=== PATIENT | male | born 1945 | race Caucasian/White ===

== ENCOUNTER → 2018-10-17 06:52 | Outpatient (CLI) | payer MEDICARE, OTHER, SELFPAY ==
[2018-10-17 08:00] LABS: Alanine Aminotransferase 25 IU/L (21-72); Albumin 4.4 g/dL (3.5-5.0); Albumin Globulin Ratio 1.6 (1.0-2.8); Alkaline Phosphatase 51 U/L (38-126); Aspartate Aminotransferase 22 IU/L (17-59); BUN Creatinine Ratio 32.5 (6-22); Bilirubin Total 0.4 mg/dL (0.2-1.3); Blood Urea Nitrogen 26 mg/dL (9-20); Calcium 8.6 mg/dL (8.4-10.2); Carbon Dioxide 29 mmol/L (22-32); Chloride 102 mmol/L (98-107); Cholesterol 149 mg/dL (140-199); Estimated Glomerular Filt Rate > 60.0 mL/min (>60); Globulin 2.7 g/dL (1.7-4.1); Glucose 91 mg/dL (80-110); HDL Cholesterol 36 mg/dL (40-60); HEMOLYSIS < 15 (0-50); LDL Cholesterol Calculated 99 mg/dL (<100); Potassium 4.6 mmol/L (3.4-5.1); Sodium 144 mmol/L (137-145); Total Protein 7.1 g/dL (6.3-8.2); Triglycerides 70 mg/dL (35-150)
[2018-10-17 08:05] LABS: Add Manual Diff / Slide Review NO; Basophils Percent Auto 0.6 % (0-2); Eosinophils Percent Auto 3.5 % (2-4); Hematocrit 41.9 % (41-53); Lymphocytes Percent Auto 27.3 % (25-40); Mean Corpuscular HGB Conc 33.3 % (30-36); Mean Corpuscular Hemoglobin 31.1 PG (26-34); Mean Corpuscular Volume 93.5 fL (80-100); Neutrophils Absolute Auto 4300 /uL (3000-5900); Neutrophils Percent Auto 58.6 % (50-75); Platelet Count 308 X10^3/uL (150-400); Red Blood Cell Count 4.49 X10^6/uL (4.5-5.9); Red Cell Distribution Width 13.9 % (11.6-14.8); White Blood Cell Count 7.4 X10^3/uL (4.5-11.0)
[2018-10-17 08:28] LABS: Thyroid Stimulating Hormone < 0.02 uIU/mL (0.47-4.68)
== END ==
PROVIDERS: PCP Family Medicine; Visit Provider Family Medicine
DX: C73 Malignant neoplasm of thyroid gland (principal); E03.9 Hypothyroidism, unspecified; Z12.5 Encounter for screening for malignant neoplasm of prostate; D64.9 Anemia, unspecified; I10 Essential (primary) hypertension
CPT/HCPCS: 36415; 80053; 80061; 84443; 85025; G0103

== ENCOUNTER → 2019-11-27 07:04 | Outpatient (CLI) | payer MEDICARE, OTHER, SELFPAY ==
[2019-11-27 08:52] LABS: Add Manual Diff / Slide Review NO; Basophils Absolute Auto 0 /uL (0-100); Basophils Percent Auto 0.5 % (0-2); Eosinophils Absolute Auto 200 /uL (0-450); Eosinophils Percent Auto 2.9 % (2-4); Hematocrit 40.5 % (41-53); Hemoglobin 14.1 g/dL (13.5-17.5); Lymphocytes Absolute Auto 1700 /uL (1100-4500); Lymphocytes Percent Auto 22.7 % (25-40); Mean Corpuscular HGB Conc 34.9 % (30-36); Mean Corpuscular Hemoglobin 31.2 PG (26-34); Mean Corpuscular Volume 89.4 fL (80-100); Monocytes Absolute Auto 800 /uL (0-900); Monocytes Percent Auto 10.1 % (3-14); Neutrophils Absolute Auto 4700 /uL (1500-7000); Neutrophils Percent Auto 63.8 % (50-75); Platelet Count 303 X10^3/uL (150-400); Red Blood Cell Count 4.53 X10^6/uL (4.5-5.9); Red Cell Distribution Width 13.6 % (11.6-14.8); White Blood Cell Count 7.4 X10^3/uL (4.5-11.0)
[2019-11-27 09:03] LABS: Alanine Aminotransferase 20 IU/L (<50); Albumin 4.4 g/dL (3.5-5.0); Albumin Globulin Ratio 1.6 (1.0-2.8); Alkaline Phosphatase 52 U/L (38-126); Aspartate Aminotransferase 28 IU/L (17-59); Bilirubin Total 0.4 mg/dL (0.2-1.3); Blood Urea Nitrogen 32 mg/dL (9-20); Calcium 8.9 mg/dL (8.4-10.2); Carbon Dioxide 28 mmol/L (22-32); Chloride 101 mmol/L (98-107); Cholesterol 145 mg/dL (140-199); Estimated Glomerular Filt Rate > 60.0 mL/min (>60); Globulin 2.7 g/dL (1.7-4.1); Glucose 92 mg/dL (80-110); HDL Cholesterol 26 mg/dL (40-60); HEMOLYSIS 34 (0-50); LDL Cholesterol Calculated 106 mg/dL (<100); Potassium 4.6 mmol/L (3.4-5.1); Sodium 139 mmol/L (137-145); Total Protein 7.1 g/dL (6.3-8.2); Triglycerides 64 mg/dL (35-150)
[2019-11-27 09:32] LABS: Prostate Specific Antigen Scrn 2.61 ng/mL (0.1-4.0)
[2019-11-27 10:18] LABS: Thyroid Stimulating Hormone < 0.02 uIU/mL (0.47-4.68)
== END ==
PROVIDERS: PCP Family Medicine; Visit Provider Family Medicine
DX: Z12.5 Encounter for screening for malignant neoplasm of prostate (principal); E78.5 Hyperlipidemia, unspecified; Z13.1 Encounter for screening for diabetes mellitus; Z13.220 Encounter for screening for lipoid disorders; Z13.6 Encounter for screening for cardiovascular disorders; E89.0 Postprocedural hypothyroidism
CPT/HCPCS: 36415; 80053; 80061; 84443; 85025; G0103

== ENCOUNTER → 2020-02-26 10:44 | Outpatient (CLI) | payer MEDICARE, OTHER, SELFPAY ==
[2020-02-26 13:29] LABS: Free T3, Triiodothyronine Free 3.57 pg/mL (2.77-5.27); Free T4, Direct Thyroxine 2.15 ng/dL (0.78-2.19)
[2020-02-26 13:42] LABS: Thyroid Stimulating Hormone < 0.02 uIU/mL (0.47-4.68)
[2020-02-27 09:08] LABS: PSA, Total 2.5 ng/mL (0.0-4.0)
== END ==
PROVIDERS: PCP Family Medicine; Referring Provider Family Medicine; Visit Provider Family Medicine
DX: R97.20 Elevated prostate specific antigen [PSA] (principal)
CPT/HCPCS: 36415; 84153; 84154; 84439; 84443; 84481

== ENCOUNTER → 2020-10-29 07:05 | Outpatient (CLI) | payer MEDICARE, OTHER, SELFPAY ==
[2020-10-29 09:23] LABS: Thyroid Stimulating Hormone < 0.015 uIU/mL (0.47-4.68)
== END ==
PROVIDERS: PCP Family Medicine; Referring Provider Family Medicine; Visit Provider Family Medicine
DX: E89.0 Postprocedural hypothyroidism (principal)
CPT/HCPCS: 36415; 84443

== ENCOUNTER → 2021-01-02 13:28 | Outpatient (CLI) | payer MEDICARE, OTHER, SELFPAY | PROVIDERS: PCP Student in an Organized Health Care Education/Training Program; Referring Provider Student in an Organized Health Care Education/Training Program; Visit Provider Student in an Organized Health Care Education/Training Program | DX: E89.0 Postprocedural hypothyroidism (principal); Z87.891 Personal history of nicotine dependence | CPT/HCPCS: 77080 ==

== ENCOUNTER → 2021-02-19 16:09 | Outpatient (CLI) | payer MEDICARE, OTHER, SELFPAY ==
[2021-02-19 17:38] LABS: TSH w/ Reflex to FT4 < 0.02 uIU/mL (0.47-4.68)
[2021-02-19 18:13] LABS: Free T4, Direct Thyroxine 1.78 ng/dL (0.78-2.19)
== END ==
PROVIDERS: PCP Student in an Organized Health Care Education/Training Program; Referring Provider Student in an Organized Health Care Education/Training Program; Visit Provider Student in an Organized Health Care Education/Training Program
DX: E89.0 Postprocedural hypothyroidism (principal)
CPT/HCPCS: 36415; 84439; 84443

== ENCOUNTER → 2021-03-31 09:29 | Outpatient (CLI) | payer MEDICARE, OTHER, SELFPAY ==
[2021-03-31 11:55] LABS: Free T4, Direct Thyroxine 1.45 ng/dL (0.78-2.19)
== END ==
PROVIDERS: PCP Student in an Organized Health Care Education/Training Program; Referring Provider Student in an Organized Health Care Education/Training Program; Visit Provider Student in an Organized Health Care Education/Training Program
DX: E05.80 Other thyrotoxicosis without thyrotoxic crisis or storm (principal)
CPT/HCPCS: 36415; 84439; 84443

== ENCOUNTER → 2022-01-22 06:57 | Outpatient (CLI) | payer MEDICARE, OTHER, SELFPAY ==
[2022-01-22 10:02] LABS: TSH w/ Reflex to FT4 0.86 uIU/mL (0.47-4.68)
== END ==
PROVIDERS: PCP Student in an Organized Health Care Education/Training Program; Referring Provider Student in an Organized Health Care Education/Training Program; Visit Provider Student in an Organized Health Care Education/Training Program
DX: C73 Malignant neoplasm of thyroid gland (principal); E03.9 Hypothyroidism, unspecified
CPT/HCPCS: 36415; 84443

== ENCOUNTER → 2023-01-24 16:14 | Outpatient (CLI) | payer MEDICARE, OTHER, SELFPAY ==
[2023-01-24 18:00] LABS: Hep C Virus Ab w/Reflex Quant NEGATIVE s/c (NEGATIVE)
[2023-01-24 22:12] LABS: TSH w/ Reflex to FT4 0.52 uIU/mL (0.47-4.68)
== END ==
PROVIDERS: PCP Student in an Organized Health Care Education/Training Program; Referring Provider Student in an Organized Health Care Education/Training Program; Visit Provider Student in an Organized Health Care Education/Training Program
DX: E03.9 Hypothyroidism, unspecified (principal); Z11.59 Encounter for screening for other viral diseases
CPT/HCPCS: 36415; 84443; 86803

== ENCOUNTER → 2023-01-28 07:13 | Outpatient (CLI) | payer MEDICARE, OTHER, SELFPAY ==
[2023-01-31 10:17] LABS: Fecal Immunochemical Test Negative (Negative)
== END ==
PROVIDERS: PCP Student in an Organized Health Care Education/Training Program; Referring Provider Student in an Organized Health Care Education/Training Program; Visit Provider Student in an Organized Health Care Education/Training Program
DX: Z12.11 Encounter for screening for malignant neoplasm of colon (principal)
CPT/HCPCS: 82274

== ENCOUNTER → 2023-12-22 10:10 | Outpatient (CLI) | payer MEDICARE, OTHER, SELFPAY ==
[2023-12-22 10:55] LABS: Add Manual Diff / Slide Review NO; Basophils Absolute Auto 100 /uL (0-100); Basophils Percent Auto 0.7 % (0-2); Eosinophils Absolute Auto 200 /uL (0-450); Eosinophils Percent Auto 1.9 % (2-4); Hematocrit 39.8 % (41-53); Hemoglobin 13.8 g/dL (13.5-17.5); Lymphocytes Absolute Auto 1900 /uL (1100-4500); Lymphocytes Percent Auto 22.7 % (25-40); Mean Corpuscular HGB Conc 34.7 % (30-36); Mean Corpuscular Hemoglobin 31.7 PG (26-34); Mean Corpuscular Volume 91.2 fL (80-100); Monocytes Absolute Auto 800 /uL (0-900); Monocytes Percent Auto 9.2 % (3-14); Neutrophils Absolute Auto 5600 /uL (1500-7000); Neutrophils Percent Auto 65.5 % (50-75); Platelet Count 324 X10^3/uL (150-400); Red Blood Cell Count 4.36 X10^6/uL (4.5-5.9); Red Cell Distribution Width 13.4 % (11.6-14.8); White Blood Cell Count 8.5 X10^3/uL (4.5-11.0)
[2023-12-22 11:32] LABS: Alanine Aminotransferase 17 IU/L (<50); Albumin 4.2 g/dL (3.5-5.0); Albumin Globulin Ratio 1.4 (1.0-2.8); Alkaline Phosphatase 58 U/L (38-126); Aspartate Aminotransferase 33 IU/L (17-59); BUN Creatinine Ratio 34.9 (6-22); Bilirubin Total 0.5 mg/dL (0.2-1.3); Blood Urea Nitrogen 30 mg/dL (9-20); Calcium 8.9 mg/dL (8.4-10.2); Carbon Dioxide 28 mmol/L (22-32); Chloride 102 mmol/L (98-107); Estimated Glomerular Filt Rate > 60 mL/min (>60); Glucose 92 mg/dL (80-110); HEMOLYSIS < 15 (0-50); Potassium 4.7 mmol/L (3.4-5.1); Sodium 138 mmol/L (137-145); Total Protein 7.2 g/dL (6.3-8.2)
[2023-12-22 11:46] LABS: Free T4, Direct Thyroxine 1.36 ng/dL (0.78-2.19)
[2023-12-22 11:58] LABS: Prostate Specific Antigen Scrn 3.38 ng/mL (0.1-4.0)
[2023-12-22 11:59] LABS: Thyroid Stimulating Hormone 0.936 uIU/mL (0.47-4.68)
== END ==
PROVIDERS: PCP Family Medicine; Referring Provider Family Medicine; Visit Provider Family Medicine
DX: Z12.5 Encounter for screening for malignant neoplasm of prostate (principal); E03.9 Hypothyroidism, unspecified; R97.20 Elevated prostate specific antigen [PSA]
CPT/HCPCS: 36415; 80053; 84439; 84443; 85025; G0103

== ENCOUNTER → 2024-03-26 08:10 | Outpatient (CLI) | payer MEDICARE, OTHER, SELFPAY ==
--- NOTE | 2024-03-26 08:12 | DI.RAD.S_ITS ---
PROCEDURE: XR CHEST 2V INDICATIONS: Chronic cough x 4 weeks and fevers TECHNIQUE: 2 views of the chest were acquired. COMPARISON: None. FINDINGS: Surgical changes and devices: None. Lungs and pleura: Lungs are clear. No pleural effusions or pneumothorax. Mediastinum: Mediastinal contours are normal. Heart size is normal. Bones and chest wall: No suspicious bony abnormalities. Soft tissues appear unremarkable. IMPRESSION: No acute cardiopulmonary abnormality is seen. Dictated by: Carlos Choe M.D. on 03/26/2024 at 11:51 Approved by: Carlos Choe M.D. on 03/26/2024 at 11:51
== END ==
LOC: RAD 08:12
PROVIDERS: PCP Family Medicine; Referring Provider Physician Assistant; Visit Provider Physician Assistant
DX: R05.3 Chronic cough (principal)
CPT/HCPCS: 71046

== ENCOUNTER 2024-05-08 07:48 | Day surgery (SDC) | payer MEDICARE, OTHER, SELFPAY ==
[2024-05-08 08:20] VITALS: BP 146/72; PULSE 63; RESP 17; TEMP 36.3; O2SAT 95
--- NOTE | 2024-05-08 08:34 | PM.HP.1 ---
History of Present Illness History of Present Illness Date Patient Seen: 05/08/24 Time Patient Seen: 08:35 Chief complaint: [facility] [place] Narrative: 78-year-old man here for screening colonoscopy. Last colonoscopy 5 years ago. History of colonic polyps. No family history of colon cancer. No abdominal concerns today. 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) Dental abscess Surgical History Anesthesia Inguinal hernia (~2012) History of thyroidectomy (~1973) Family History Father Stroke Social History Smoking Status: Former smoker Meds Home Medications and Allergies Home Medications Medication Instructions Recorded Confirmed Type ASPIRIN (#ASPIRIN) 81 mg PO QDAY ##0 10/19/11 03/26/24 History MULTIVITAMIN (#MULTIPLE VITAMINS) 1 cap PO Q DAY ##0 10/20/11 05/08/24 History Vitamin C 1,000 mg PO DAILY 11/05/20 05/08/24 History omega 8-riy-rjw-fish oil 1,000 mg 2 cap PO QDAY #0 caps 11/05/20 05/08/24 History (120 mg-180 mg) capsule (Fish Oil) ibuprofen 600 mg tablet 600 mg PO Q8H PRN pain #60 tabs 09/01/23 03/26/24 Rx peg 3350-sod sulf,vtdin-bxo-zrx 1,000 ml PO DIRECTED #2,000 mL 04/09/24 Rx 178.7-7.3-0.5-1.12-0.9 gram oral soln (Suflave) levothyroxine 125 mcg tablet 125 mcg PO DAILY #90 tabs 04/23/24 05/08/24 Rx Allergies Allergy/AdvReac Type Severity Reaction Status Date / Time No Known Drug Allergies Allergy Verified 05/08/24 08:14 Exam Vital Signs (past 8 hours): - 05/08/24 08:20 Temperature 97.3 F L Pulse Rate 63 Respiratory Rate 17 Blood Pressure 146/72 H Pulse Oximetry 95 Oxygen Delivery Method Room Air Oxygen Delivery Method Room Air Narrative Exam Narrative: General adult man alert oriented no acute distress Chest nonlabored respiration Extremities warm well perfused Assessment & Plan Assessment & Plan narrative: The patient requires colorectal screening and colonoscopy is recommended. Technical details were discussed. Risks, benefits, alternatives explained. Risks including but not limited to myocardial infarction, aspiration, bleeding, pain, missed lesion, incomplete examination, need for further radiographic studies, intestinal injury, and need for major abdominal surgery were discussed. All questions were answered to their satisfaction, and they are in agreement with this plan.
[2024-05-08] MEDS: LACTATED RINGERS 1,000 ML 100 ML IV (08:36)
[2024-05-08 09:05] VITALS: BP 123/81; PULSE 75; RESP 14; TEMP 36.7; O2SAT 95
[2024-05-08 09:12] VITALS: BP 120/71; PULSE 79; RESP 14; TEMP 36.7; O2SAT 92
--- NOTE | 2024-05-08 09:13 | P.OP.COLON_ITS ---
Operative Date/Time/Diagnoses Date of procedure: 05/08/24 Time of procedure: 09:14 Pre-op diagnosis: Colorectal screening Procedure & Clinicians Study performed: Screening colonoscopy Same procedure as scheduled: Yes Indications: Colorectal screening Surgeon: Ric Blanc Procedure Notes Procedure in detail: The history and physical was performed/updated and the patient is ASA class is 2. The procedure was discussed in detail with the patient. Potential risks co mplications including infection, bleeding, missed diagnosis, perforation, need for surgery, and were explained. Their questions were answered and informed consent was obtained. Patient was brought to the procedure room and placed standard monitoring equipment. The patient's vital signs were monitored continuously throughout the entire procedure. Prior to starting time-out was performed. The patient was placed in the left lateral recumbent position. Procedural sedation was administered by anesthesia. Examination began with a thorough inspection of the perianal area there was no evidence of fissures, fistulae, external hemorrhoids or cutaneous malignancy. The colonoscopy scope was then placed into the anal canal and was advanced to the cecum, which was identified by the ileocecal valve, the appendiceal orifice and the confluence of the taenia. The scope was then slowly withdrawn examining colon thoroughly in all directions, irrigating it of any residual stool. The scope was retroflexed within the rectum The patient tolerated the procedure well. They will be discharged once criteria are met. The prep was of good/excellent quality. The withdrawl time was 6 minutes. FINDINGS * Sigmoid diverticulosis * Internal hemorrhoids * No polyps Specimen(s): none sent Impression: Diverticulosis Post-procedure Recommendations: High fiber diet Plan for aftercare: No further colonoscopy necessary unless symptomatic Disposition: same day surgery
[2024-05-08 09:17] VITALS: BP 141/67; PULSE 71; RESP 15; TEMP 36.6; O2SAT 96
[2024-05-08 09:22] VITALS: BP 125/75; PULSE 70; RESP 18; TEMP 36.6; O2SAT 97
== END 2024-05-08 09:36 | disposition home or self-care (01) ==
PROVIDERS: PCP Family Medicine; Referring Provider Surgery; Visit Provider Surgery
PROC: 0DJD8ZZ Inspection of Lower Intestinal Tract, Via Natural or Artificial Opening Endoscopic (ICD-10-PCS; CPT 45378; principal; 2024-05-08 08:45)
DX: Z12.11 Encounter for screening for malignant neoplasm of colon (principal); K64.8 Other hemorrhoids; K57.30 Diverticulosis of large intestine without perforation or abscess without bleeding
CPT/HCPCS: G0121; J2704

== ENCOUNTER → 2024-06-28 06:35 | Outpatient (CLI) | payer MEDICARE, OTHER, SELFPAY ==
[2024-06-28 08:13] LABS: Add Manual Diff / Slide Review NO; Basophils Absolute Auto 0 /uL (0-100); Basophils Percent Auto 0.5 % (0-2); Eosinophils Absolute Auto 200 /uL (0-450); Eosinophils Percent Auto 2.7 % (2-4); Hemoglobin 13.1 g/dL (13.5-17.5); Lymphocytes Absolute Auto 1500 /uL (1100-4500); Lymphocytes Percent Auto 22.1 % (25-40); Mean Corpuscular HGB Conc 34.4 % (30-36); Mean Corpuscular Hemoglobin 32.1 PG (26-34); Mean Corpuscular Volume 93.5 fL (80-100); Monocytes Absolute Auto 700 /uL (0-900); Monocytes Percent Auto 10.2 % (3-14); Neutrophils Absolute Auto 4400 /uL (1500-7000); Neutrophils Percent Auto 64.5 % (50-75); Platelet Count 268 X10^3/uL (150-400); Red Blood Cell Count 4.06 X10^6/uL (4.5-5.9); Red Cell Distribution Width 13.8 % (11.6-14.8); White Blood Cell Count 6.9 X10^3/uL (4.5-11.0)
[2024-06-28 08:39] LABS: Reticulocyte Count, Percent 0.8 % (0.9-2.6)
[2024-06-28 08:54] LABS: Cholesterol 148 mg/dL (140-199); HDL Cholesterol 40 mg/dL (40-60); LDL Cholesterol Calculated 98 mg/dL (<100); Triglycerides 48 mg/dL (35-150)
[2024-06-28 09:21] LABS: Prostate Specific Antigen Scrn 3.22 ng/mL (0.1-4.0)
== END ==
PROVIDERS: PCP Family Medicine; Referring Provider Family Medicine; Visit Provider Family Medicine
DX: D64.9 Anemia, unspecified (principal); E89.0 Postprocedural hypothyroidism; Z12.5 Encounter for screening for malignant neoplasm of prostate; R97.20 Elevated prostate specific antigen [PSA]; Z13.6 Encounter for screening for cardiovascular disorders; Z79.899 Other long term (current) drug therapy
CPT/HCPCS: 36415; 80061; 85025; 85045; G0103

== ENCOUNTER → 2024-07-06 08:50 | Outpatient (CLI) | payer MEDICARE, OTHER, SELFPAY ==
--- NOTE | 2024-07-06 08:51 | DI.RAD.S_ITS ---
PROCEDURE: XR LUMBAR SPINE 2-3V INDICATIONS: Progressive lower back pain with left-sided radiculopathy TECHNIQUE: 3 views of the lumbar spine were acquired. COMPARISON: None. FINDINGS: Bones: 5 osf-nbf-lssygvk vertebrae are present. Mild dextrocurvature. Mild retrolisthesis of L2 on L3 and L3 on L4. There is multilevel facet arthropathy, worse at L4-5 and L5-S1. Multilevel disc height loss with degenerative endplate changes and spurring is present. No vertebral body compression fractures. No suspicious bony lesions. Soft tissues: Overlying bowel gas pattern is normal. No suspicious soft tissue calcifications. Atherosclerotic vascular calcifications. IMPRESSION: Severe multilevel degenerative changes of the lumbar spine. Consider MRI for further evaluation. Dictated by: Rodolfo Holt M.D. on 07/06/2024 at 16:55 Approved by: Rodolfo Holt M.D. on 07/06/2024 at 16:55
== END ==
PROVIDERS: PCP Family Medicine; Referring Provider Family Medicine; Visit Provider Family Medicine
DX: M47.26 Other spondylosis with radiculopathy, lumbar region (principal); M47.27 Other spondylosis with radiculopathy, lumbosacral region
CPT/HCPCS: 72100

== ENCOUNTER → 2024-08-01 07:06 | Outpatient (CLI) | payer MEDICARE, OTHER, SELFPAY ==
--- NOTE | 2024-08-01 07:07 | DI.MRI.S_ITS ---
PROCEDURE: MR LUMBAR SPINE WO CON INDICATIONS: eval chronic back pain TECHNIQUE: Noncontrast sagittal T1 spin echo and T2 fast echo, sagittal STIR, and T2 fast spin echo through the lumbar spine. In cases with scoliosis, additional coronal T2 fast spin echo may be performed. COMPARISON: None. FINDINGS: Image quality: Motion is present multiple levels, limiting areas of fine detail evaluation. Alignment and Curvature: There is minimal rightward curvature. There is trace retrolisthesis of L1 on L2, L2 on L3, L4 on L5. Bone Marrow: Marrow is of normal overall signal. Moderate reactive endplate changes are present at L1-2, L2-3. Multilevel Schmorl's nodes are present predominantly along the superior endplates L1, L2 and L3. No acute vertebral body compression fractures. Spinal Cord: Conus medullaris terminates at the L1 level. Visualized cord demonstrates normal signal and size. Paraspinous Soft Tissues: No paravertebral masses. Discs: Multilevel moderate to severe disc desiccation. T12-L1: Minimal disc bulge without spinal stenosis or foraminal narrowing. L1-L2: Mild disc bulge with mild spinal stenosis. Prominent motion is present at this level. There is rqva-ql-blguplgy left foraminal narrowing with facet and ligamentum flavum hypertrophy L2-L3: Mild disc bulge with mild spinal stenosis. Eiyi-sz-judfmbkd bilateral foraminal narrowing with facet and ligamentum flavum hypertrophy. L3-L4: Mild disc bulge with mild spinal stenosis. Moderate bilateral foraminal narrowing, left greater than right with facet and ligamentum flavum hypertrophy. L4-L5: Mild disc bulge with severe spinal stenosis and canal compression. Moderate to severe left and severe right foraminal narrowing, with mild compression of the exiting right L4 nerve root. Facet and ligamentum flavum hypertrophy are present., L5-S1: Mild disc bulge without spinal stenosis. Severe bilateral foraminal narrowing, right greater than left with mild compression of the exiting L5 nerve roots bilaterally, right greater than left. Facet and ligamentum flavum hypertrophy are present. IMPRESSION: Multilevel spinal stenosis severe at L4-5 with canal compression secondary to disc bulge as well as facet/ligamentum flavum hypertrophy. Multilevel foraminal narrowing most severe at L5-S1 secondary to facet/ligamentum flavum arthropathy. Dictated by: Stacie Farley M.D. on 08/01/2024 at 10:25 Approved by: Stacie Farley M.D. on 08/01/2024 at 10:50
== END ==
LOC: MRI 07:06
PROVIDERS: PCP Family Medicine; Referring Provider Family Medicine; Visit Provider Family Medicine
DX: M48.061 Spinal stenosis, lumbar region without neurogenic claudication (principal); M48.07 Spinal stenosis, lumbosacral region; M51.16 Intervertebral disc disorders with radiculopathy, lumbar region; M51.17 Intervertebral disc disorders with radiculopathy, lumbosacral region; M47.26 Other spondylosis with radiculopathy, lumbar region; M47.27 Other spondylosis with radiculopathy, lumbosacral region; M54.50 Low back pain, unspecified
CPT/HCPCS: 72148

== ENCOUNTER → 2024-09-26 08:48 | Outpatient (CLI) | payer MEDICARE, OTHER, SELFPAY ==
--- NOTE | 2024-09-26 09:25 | EKG_ITS ---
[address] [address] Test Date: 2024-09-26 Pat Name: Francisco Santana Department: [facility] Room: Gender: Male Banana Expert: BRYNN : 1945 Requested By: Order Number: [id number] Reading MD: Chance Downs MD Measurements Intervals Irwin Rate: 61 P: 10 MD: 202 QRS: 68 QRSD: 110 T: 50 QT: 410 QTc: 412 Interpretive Statements Normal sinus rhythm Electronically Signed On 09-27-2024 8:05:27 PST by Chance Downs MD
[2024-09-26 10:19] LABS: Add Manual Diff / Slide Review NO; Basophils Absolute Auto 0 /uL (0-100); Basophils Percent Auto 0.5 % (0-2); Eosinophils Absolute Auto 100 /uL (0-450); Hematocrit 39.7 % (41-53); Hemoglobin 13.4 g/dL (13.5-17.5); Lymphocytes Absolute Auto 1800 /uL (1100-4500); Lymphocytes Percent Auto 26.3 % (25-40); Mean Corpuscular HGB Conc 33.7 % (30-36); Mean Corpuscular Hemoglobin 32.1 PG (26-34); Mean Corpuscular Volume 95.1 fL (80-100); Monocytes Absolute Auto 600 /uL (0-900); Monocytes Percent Auto 8.3 % (3-14); Neutrophils Absolute Auto 4300 /uL (1500-7000); Neutrophils Percent Auto 62.9 % (50-75); Platelet Count 284 X10^3/uL (150-400); Red Blood Cell Count 4.18 X10^6/uL (4.5-5.9); Red Cell Distribution Width 14.2 % (11.6-14.8); White Blood Cell Count 6.9 X10^3/uL (4.5-11.0)
[2024-09-26 10:41] LABS: BUN Creatinine Ratio 34.6 (6-22); Blood Urea Nitrogen 28 mg/dL (9-20); Calcium 8.8 mg/dL (8.4-10.2); Carbon Dioxide 28 mmol/L (22-32); Chloride 101 mmol/L (98-107); Estimated Glomerular Filt Rate > 60 mL/min (>60); Glucose 100 mg/dL (80-110); HEMOLYSIS < 15 (0-50); Potassium 4.1 mmol/L (3.4-5.1); Sodium 136 mmol/L (137-145)
== END ==
PROVIDERS: PCP Family Medicine; Referring Provider Orthopaedic Surgery Orthopaedic Surgery of the Spine; Visit Provider Orthopaedic Surgery Orthopaedic Surgery of the Spine
DX: Z01.818 Encounter for other preprocedural examination (principal); Z01.812 Encounter for preprocedural laboratory examination
CPT/HCPCS: 36415; 80048; 85025; 93005; 93010

== ENCOUNTER 2024-10-15 14:23 | Day surgery (SDC) | payer MEDICARE, OTHER, SELFPAY ==
[2024-10-11 07:47] VITALS: BMI 28.1
[2024-10-15] MEDS: ACETAMINOPHEN 325 MG TABLET 975 MG PO (14:57)
[2024-10-15 15:01] VITALS: BMI 27.7
[2024-10-15 15:20] VITALS: BP 150/81; PULSE 60; RESP 16; TEMP 37.1; O2SAT 98
[2024-10-15] MEDS: LACTATED RINGERS 1,000 ML 42 ML IV (15:22)
--- NOTE | 2024-10-15 15:30 | PM.PREOP ---
Pre-operative Note Interval Note History & Physical reviewed/Exam performed by Physician: Yes Changes to H&P: No
--- NOTE | 2024-10-15 15:38 | P.OP_ITS ---
Operative Date/Time/Diagnoses Date of procedure: 10/15/24 Time of procedure: 16:00 Pre-op diagnosis: 1. L4-5 spinal stenosis with neurogenic claudication Post-op diagnosis: same Procedure & Clinicians Procedure: 1. L4-5 laminectomies with bilateral partial facetecomies 2. Utiliziation of microsurgical technique and operating microscope Same procedure as scheduled: Yes Indications: Patient has been having worsening lumbar radiculopathy and symptoms of neurogenic claudication. Patient was found have severe spinal stenosis at L4-5 level correlating with his symptoms. Patient failed multiple conservative management with worsening pain weakness and numbness in his lower extremity. Patient has been having difficulty performing activity of daily living. After discussing risks benefits of treatment options, patient elected proceed with surgery. Surgeon: Francis Hurt Ram Press Operator: Tomeka Torres Click Yes if Unassisted: No Anesthesia Type: General Operative Notes Closure Type: primary Specimen(s): none sent Estimated Blood Loss (mL): 5 Blood products transfused: none Procedure in detail: Patient was seen in the preoperative area. Risks and benefits of the surgery was discussed with the patient. Informed consent was obtained from the patient and placed in the chart. Surgical site was marked. Patient was taken to the operative room. General anesthesia was administered. Prophylactic antibiotic was given to the patient less than 30 min before the incision was made. Patient was placed into a prone position on the Hamilton table. Patient's back was then prepped and draped in the sterile fashion. Time-out was performed at this time. Using AP and lateral C-arm imaging the interval between L4-5 was identified and marked on patient's back. A 1 inch incision 1 in from midline was made on the left side. The fascia was incised in line with skin incision. Globus MARS retr actors was placed inside the incision and docked onto the L4 lamina. Using microsurgical technique and operating microscope, a for laminectomy was performed using a Kerrison rongeur. Liagamentum flavum was resected at the site of the laminotomy. Either side of the dura was exposed. Bilateral partial facetcomies was performed to further decompress the lateral recess. After the laminectomy was completed, the area medial lateral superior and inferior to the area of the laminectomy was inspected and explored using a micro curette. No other impinging structure was identified. The wound was then irrigated with sterile normal saline. 40 mg Depo-Medrol was placed into the epidural space. The deep fascia was closed with 1-0 Vicryl. The subcutaneous tissue was closed with 2-0 Vicryl. The skin was closed with 4-0 Monocryl. Patient tolerated the procedure well. There were no complications. Patient was transferred recovery room in stable condition. The Operation could not have been safely performed without compromising the technical result or length of the procedure, without the assistance of a skilled certified surgical technologist. The certified surgical technologist was medically necessary for proper positioning, retraction and manipulation of instruments, proper exposure, surgical preparation, and manipulation of tissue. Complications: none Post-operative Condition: stable Disposition: PACU Plan for aftercare: Discharge to home
[2024-10-15] MEDS: CEFAZOLIN 2 GM/100 ML PREMIX 100 ML IV (16:15)
--- NOTE | 2024-10-15 16:29 | SUR.OPER ---
Prone on spine table, head in foam head support, padded chest and pelvic supports, gel pad at knees, lower legs supported by pillows; nipples, genitalia and toes free of pressure, arms secured on foam padded arm boards at <90 degrees abduction. Tape over blanket at thigh secured to table.
[2024-10-15] MEDS: BUPIVACAINE 0.25% (PF) 30 ML, EPINEPHrine 0.15 MG INJ (16:32)
--- NOTE | 2024-10-15 16:45 | DI.RAD.S_ITS ---
PROCEDURE: XR LUMBAR SPINE 2-3V INDICATIONS: L4-L5 MICRODISCECTOMY TECHNIQUE: 2 coned digital images of the lower lumbar spine were submitted from the OR were acquired. COMPARISON: [facility], , XR LUMBAR SPINE 2-3V, 07/06/2024, 8:49. FINDINGS: AP lateral digital images show metallic cylinder overlying the left L4-5 posterior Lizy liminar soft tissues. Severe L2-3, L3-4 L4-5 and L5-S1 degenerative disc disease noted. There is severe L4-5 and L5-S1 degenerative facet disease. IMPRESSION: Surgical findings as described Dictated by: Chance Villela M.D. on 10/16/2024 at 10:03 Approved by: Chance Villela M.D. on 10/16/2024 at 10:04
[2024-10-15 17:13] VITALS: BP 121/66; PULSE 88; RESP 13; TEMP 36.4; O2SAT 98
[2024-10-15 17:23] VITALS: BP 127/48; PULSE 72; RESP 18; O2SAT 96
[2024-10-15 17:32] VITALS: BP 116/58; PULSE 71; RESP 11; TEMP 36.1; O2SAT 94
== END 2024-10-15 18:01 | disposition home or self-care (01) ==
PROVIDERS: PCP Family Medicine; Referring Provider Orthopaedic Surgery Orthopaedic Surgery of the Spine; Visit Provider Orthopaedic Surgery Orthopaedic Surgery of the Spine
PROC: (CPT 63047; principal; 2024-10-15 16:30)
DX: M48.062 Spinal stenosis, lumbar region with neurogenic claudication (principal); M54.16 Radiculopathy, lumbar region
CPT/HCPCS: 63047; 72100; 76000; J0171; J0690; J1100; J2405; J2704; J2919; J3010

== ENCOUNTER 2024-10-17 00:58 | Emergency (ER) | payer MEDICARE, OTHER, SELFPAY ==
[2024-10-17] VITALS (7 sets, daily range): BP systolic 127–183; BP diastolic 68–79; PULSE 55–66; RESP 18; O2SAT 83–100; BMI 26.9
--- NOTE | 2024-10-17 01:36 | ED_ITS ---
HPI - Male Genitourinary General Chief complaint: Urogenital-Male Stated complaint: surg t-2, cannot urinate Time Seen by Provider: 10/17/24 01:30 Source: patient Mode of arrival: Ambulatory Limitations: no limitations History of Present Illness HPI Narrative: 79-year-old male history of hypothyroidism had L4-L5 laminectomy with bilateral partial facetectomies on Tuesday since then has had issues with urination mostly with dribbling and then unable to urinate this evening. He states he has not had a bowel movement since the surgery he is passing gas. No fevers, no chest pain or shortness of breath. States no back pain. Feels like he was moving well. Has some chronic paresthesias down his left leg that were present prior to the surgery. No worsening paresthesias. He states no weakness he has good movement. Denies any saddle anesthesia. Patient has not had urinary issues in the past he is aware of he does not have any known prostate issues. States his only home medication is levothyroxine. He has not taking any narcotics for pain management. Related Data Home Medications Medication Instructions Recorded Confirmed MULTIVITAMIN (#MULTIPLE VITAMINS) 1 cap PO Q DAY ##0 10/20/11 10/15/24 Vitamin C 1,000 mg PO DAILY 11/05/20 10/15/24 omega 2-nwg-gga-fish oil 1,000 mg 2 cap PO QDAY #0 caps 11/05/20 10/15/24 (120 mg-180 mg) capsule (Fish Oil) aspirin 81 mg tablet,delayed 81 mg PO DAILY 07/06/24 10/15/24 release (Adult Low Dose Aspirin) Previous Rx's Medication Instructions Recorded ibuprofen 600 mg tablet 600 mg PO Q8H PRN pain #60 tabs 09/01/23 levothyroxine 125 mcg tablet 125 mcg PO DAILY #90 tabs 04/23/24 tamsulosin 0.4 mg capsule (Flomax) 0.4 mg PO DAILY #7 caps 10/17/24 Allergies Allergy/AdvReac Type Severity Reaction Status Date / Time No Known Drug Allergies Allergy Verified 10/15/24 14:52 Review of Systems Review of Systems ROS Unobtainable: All systems reviewed & are unremarkable except as noted in HPI and below Patient History Medical History Tibia/fibula fracture HTN (hypertension) Thyroid cancer Lumbar back pain with radiculopathy affecting left lower extremity History of squamous cell carcinoma Anemia Seasonal allergies (~1964) Mumps (~1949) Measles (~1953) Chicken pox (~1951) Stomach cancer (~1974) Rupture of right Achilles tendon, sequela (10/11/17) 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 HEENT: Head normocephalic, atraumatic, EOMI, pupils reactive, face symmetric, moist mucous membranes NECK: Supple, full range of motion CARDIOVASCULAR: Regular rate and rhythm without murmurs, rubs or gallops. RESPIRATORY: Breath sounds equal bilaterally, no wheezes rales or rhonchi. ABDOMEN: Soft, nontender. Normoactive bowel sounds all 4 quadrants. No guarding or rebound, rigidity, no mass : No CVA tenderness, patient has Rivas catheter in place drained about 600 mL patient feels much better. BACK: No cervical, thoracic or lumbar vertebral point tenderness. Patient has midline incision lumbar spine need dry and intact without any signs of infection. Patient has normal range of motion. Patient is able to roll over in the bed without any issue. Patient's gait is normal. No saddle anesthesia. Patient has good rectal tone on exam. Chaperoned by DEBI Drake. Muscle strength is 5/5 in lower extremities, DTRs are 2/4 and lower extremities. Dorsalis pedis and tibialis pulses are 2+ and lower extremities. Sensation is intact in the lower extremities. EXTREMITIES: Normal range of motion, no clubbing or edema. Neurovascularly intact NEUROLOGICAL: Cranial nerves II through XII grossly intact. Moving all extremities SKIN: Warm, dry, no petechiae, no rashes or lesions. Initial Vital Signs Initial Vital Signs: Vital Signs Pulse Oximetry 83 L 10/17/24 01:02 Course Orders Ordered: ED Orders 10/17/24 01:10 Urine Microscopic Stat Discontinued Medications Lidocaine HCl (Lidocaine 2% (Glydo) 6 Ml Gel) 6 ml TOP NOW ONE Stop: 10/17/24 01:08 Last Admin: 10/17/24 01:52 Dose: Not Given Documented By: HNG Vital Signs Vital signs: Vital Signs - 8 hr 10/17/24 01:02 10/17/24 01:03 10/17/24 01:03 Pulse Rate 66 Respiratory Rate Blood Pressure 183/79 H Pulse Oximetry 83 L 95 Oxygen Delivery Method 10/17/24 01:18 10/17/24 01:18 10/17/24 01:30 Pulse Rate 58 L Respiratory Rate Blood Pressure 141/70 H 143/75 H Pulse Oximetry 100 Oxygen Delivery Method Room Air 10/17/24 01:30 10/17/24 01:34 10/17/24 02:00 Pulse Rate 57 L Respiratory Rate Blood Pressure 127/68 Pulse Oximetry 95 98 Oxygen Delivery Method 10/17/24 02:24 Pulse Rate 55 L Respiratory Rate 18 Blood Pressure Pulse Oximetry 96 Oxygen Delivery Method MDM - Male Genitourinary Lab Data Labs: Lab Results 10/17/24 Range/Units 01:10 Urine RBC None seen (0-5/HPF) Urine WBC 0-1/hpf (0-5/HPF) Ur Squamous Epith Cells None seen (0-5/HPF) Urine Bacteria None seen (None) Ur Culture Indicated? Cult not indicated Vol Urine Centrifuged 10ml (spun) Urine Dip Bedside Urine Glucose Negative Bedside Urine Bilirubin - Negative Bedside Urine Ketone - Negative Urine Specific Mclean 1.015 Bedside Urine Occult Blood - Negative Bedside Urine pH 6.0 Bedside Urine Protein - Negative Bedside Urine Urobilinogen - Negative Bedside Urine Nitrite - Negative Bedside Urine Leukocytes - Negative Esterase MDM Narrative Medical decision making narrative: 79-year-old male had laminectomy L4-L5 on Tuesday patient noted that he was having dribbling and difficulty with urination immediately thereafter in tonight was not able to urinate and came in with urinary retention. Has not had issues before in the past. States he has not having any back pain. He has some chronic paresthesias in his left leg but they have not changed pre or postoperatively. He has excellent strength on exam he has not had any incontinence and has been constipated but passing gas. Point of care urine negative urine microscopy Discussed with Orthopedic surgery, Dr. Henning patient has urinary retention no pain no new neurologic changes he was excellent strength. She would treat like a usual urinary retention catheter Flomax have patient follow-up. No imaging required at this time but if any new weakness, numbness or other changes she would recommend patient follow up with the MRI without contrast of lumbar spine. Discussed patient's findings today recommendations from Orthopedic surgery started on Flomax. Also started on please encouraged to hydrate in order to help with bowel movements if he is constipated this maybe causing some of his retention as well. We will have patient follow up with catheter removal and strict return precautions. Discharge Plan Departure Patient Disposition: Home Clinical Impression: Acute urinary retention, H/O laminectomy Instructions: DI for Urinary Retention in Men Activity Restrictions/Additional Instructions: Please follow-up with your orthopedic surgeon recheck. Call the office to follow up with Dr. Hurt. You can also follow up with primary care to have your catheter removed. Call to set up an appointment later today. Make sure you are taking a stool softener such as colace 1-2 times daily until having regular soft stools and hydrating regularly, constipation can increase your risk of urinary retention. Take Flomax once daily until gone. Prescription sent to [facility] in [place]. Please return to the emergency department if you are having any new weakness, numbness, any incontinence or difficulty with ambulation or moving or increased pain. Prescriptions: New tamsulosin [Flomax] 0.4 mg capsule 0.4 mg PO DAILY Qty: 7 0RF No Action ibuprofen 600 mg tablet 600 mg PO Q8H PRN (Reason: pain) Qty: 60 0RF MULTIVITAMIN (#MULTIPLE VITAMINS) 1 cap PO Q DAY Qty: 0 omega 4-jdd-bzc-fish oil [Fish Oil] 1,000 mg (120 mg-180 mg) capsule 2 cap PO QDAY Qty: 0 levothyroxine 125 mcg tablet 125 mcg PO DAILY Qty: 90 3RF Vitamin C 1,000 mg PO DAILY aspirin [Adult Low Dose Aspirin] 81 mg tablet,delayed release (DR/EC) 81 mg PO DAILY Referrals: Francis Hurt MD [Physician] - Willi Jim DO [Primary Care Provider] - Stand Alone Forms: Patient Portal/API/Survey
[2024-10-17 02:02] LABS: Bacteria Urine None Seen; Culture Indicated Urine Cult Not Indicated; RBC Urine None Seen (0-5/HPF); Squamous Epithelial Cell Urine None Seen (0-5/HPF); Urine Volume 10mL (spun); WBC Urine 0-1/HPF (0-5/HPF)
== END 2024-10-17 02:40 | disposition home or self-care (01) ==
PROVIDERS: Emergency Provider Emergency Medicine; PCP Family Medicine
DX: R33.8 Other retention of urine (principal); Z98.890 Other specified postprocedural states
CPT/HCPCS: 51798; 81003; 81015; 99283

== ENCOUNTER 2024-10-19 08:03 | Emergency (ER) | payer MEDICARE, OTHER, SELFPAY ==
[2024-10-19 08:13] VITALS: BP 145/68; PULSE 71; RESP 16; TEMP 36.8; O2SAT 97; BMI 26.9
--- NOTE | 2024-10-19 08:43 | ED.MALEGU ---
HPI - Male Genitourinary General Chief complaint: Urogenital-Male Stated complaint: wants cathater removed Time Seen by Provider: 10/19/24 08:14 Source: patient Mode of arrival: Ambulatory History of Present Illness HPI Narrative: 79-year-old male status post lumbar laminectomy Dr. Hurt on Tuesday four days ago here, two days ago had urinary retention symptoms and Rivas urinary catheter placement, was hoping to have the catheter removed stay in clinic but there is no one available in clinic over the holiday weekend, he is here now requesting to have his urinary catheter removed. No fevers or chills. No flank pain. No blood in tubing. Denies nausea or vomiting, denies abdominal discomfort. Related Data Home Medications Medication Instructions Recorded Confirmed MULTIVITAMIN (#MULTIPLE VITAMINS) 1 cap PO Q DAY ##0 10/20/11 10/15/24 Vitamin C 1,000 mg PO DAILY 11/05/20 10/15/24 omega 7-ozw-abe-fish oil 1,000 mg 2 cap PO QDAY #0 caps 11/05/20 10/15/24 (120 mg-180 mg) capsule (Fish Oil) aspirin 81 mg tablet,delayed 81 mg PO DAILY 07/06/24 10/15/24 release (Adult Low Dose Aspirin) Previous Rx's Medication Instructions Recorded ibuprofen 600 mg tablet 600 mg PO Q8H PRN pain #60 tabs 09/01/23 levothyroxine 125 mcg tablet 125 mcg PO DAILY #90 tabs 04/23/24 tamsulosin 0.4 mg capsule (Flomax) 0.4 mg PO DAILY #7 caps 10/17/24 Allergies Allergy/AdvReac Type Severity Reaction Status Date / Time No Known Drug Allergies Allergy Verified 10/19/24 08:13 Review of Systems Review of Systems Narrative: See HPI Patient History Medical History Tibia/fibula fracture HTN (hypertension) Thyroid cancer Lumbar back pain with radiculopathy affecting left lower extremity History of squamous cell carcinoma Anemia Seasonal allergies (~1964) Mumps (~1949) Measles (~1953) Chicken pox (~1951) Stomach cancer (~1974) Rupture of right Achilles tendon, sequela (10/11/17) 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 HEAD: Atraumatic. Normocephalic. EYES: Pupils equal round and reactive. Extraocular motions intact. No scleral icterus. No injection or drainage. ENT: Nose without bleeding, purulent drainage. Throat without erythema, tonsillar hypertrophy or exudate. Airway patent. NECK: Trachea midline. Non tender CARDIOVASCULAR: Regular rate and rhythm without murmurs, gallops, or rubs. RESPIRATORY: Clear to auscultation. Breath sounds equal bilaterally. No wheezes, rales, or rhonchi. GASTROINTESTINAL: Abdomen soft, non-tender, nondistended. : Rivas in place, clear yellow fluid in tubing. EXTREMITIES: No edema or joint tenderness. BACK: Nontender without deformity or crepitance. No flank tenderness. NEURO: AOx3. Motor functions grossly nonfocal SKIN: No rash or erythema of visible areas Initial Vital Signs Initial Vital Signs: Vital Signs Temperature 98.2 F 10/19/24 08:13 Pulse Rate 71 10/19/24 08:13 Respiratory Rate 16 10/19/24 08:13 Blood Pressure 145/68 H 10/19/24 08:13 Pulse Oximetry 97 10/19/24 08:13 Oxygen Delivery Method Room Air 10/19/24 08:13 Course Vital Signs Vital signs: Vital Signs - 8 hr 10/19/24 08:13 Temperature 98.2 F Pulse Rate 71 Respiratory Rate 16 Blood Pressure 145/68 H Pulse Oximetry 97 Oxygen Delivery Method Room Air MDM - Male Genitourinary MDM Narrative Medical decision making narrative: Patient here for Rivas catheter removal with urinary retention status post recent laminectomy surgery 5 days ago, unable to get catheter removal in clinic setting due to holiday weekend, request removal. Rivas catheter removed by RN. No fevers or chills, hold off on urinalysis for now. Follow up with spinal surgeon Dr. Hurt advised next week as planned. We discussed possible recurrence of urinary retention, return precautions discussed. Discharged home, improved Discharge Plan Departure Patient Disposition: Home Clinical Impression: Encounter for Rivas catheter removal Activity Restrictions/Additional Instructions: Recent lumbar laminectomy surgery 4 days ago, subsequent development of urinary retention symptoms 2 days ago with Rivas catheter placement here, intent to have catheter removed in clinic today Tuesday but no available clinic through the holiday weekend, apparently unable to be seen in clinic for more than a week. Here for catheter removal, which was removed intact by nursing. No fevers or chills. You could develop urinary retention symptoms again later today or in the future, return to this/nearest emergency department for any change worsening symptoms or any concerns prior to your spinal surgery follow up next week. Prescriptions: No Action ibuprofen 600 mg tablet 600 mg PO Q8H PRN (Reason: pain) Qty: 60 0RF MULTIVITAMIN (#MULTIPLE VITAMINS) 1 cap PO Q DAY Qty: 0 omega 4-vnb-aqn-fish oil [Fish Oil] 1,000 mg (120 mg-180 mg) capsule 2 cap PO QDAY Qty: 0 levothyroxine 125 mcg tablet 125 mcg PO DAILY Qty: 90 3RF Vitamin C 1,000 mg PO DAILY aspirin [Adult Low Dose Aspirin] 81 mg tablet,delayed release (DR/EC) 81 mg PO DAILY tamsulosin [Flomax] 0.4 mg capsule 0.4 mg PO DAILY Qty: 7 0RF Referrals: Willi Jim, [Primary Care Provider] - Stand Alone Forms: Patient Portal/API/Survey
--- NOTE | 2024-10-19 08:56 | PC.NURSE ---
Pt reports having direction by MD to have catheter removed. Pt denies fever, pain, discharge, or foul urine.
== END 2024-10-19 08:58 | disposition home or self-care (01) ==
PROVIDERS: Emergency Provider Emergency Medicine; PCP Family Medicine
DX: Z46.6 Encounter for fitting and adjustment of urinary device (principal)
CPT/HCPCS: 99282

== ENCOUNTER → 2025-01-08 08:41 | Outpatient (CLI) | payer MEDICARE, OTHER, SELFPAY ==
[2025-01-08 09:00] LABS: Add Manual Diff / Slide Review NO; Basophils Absolute Auto 100 /uL (0-100); Basophils Percent Auto 0.9 % (0-2); Eosinophils Absolute Auto 200 /uL (0-450); Eosinophils Percent Auto 2.7 % (2-4); Hematocrit 39.6 % (41-53); Hemoglobin 13.4 g/dL (13.5-17.5); Lymphocytes Absolute Auto 1600 /uL (1100-4500); Lymphocytes Percent Auto 22.8 % (25-40); Mean Corpuscular HGB Conc 33.9 % (30-36); Mean Corpuscular Hemoglobin 31.8 PG (26-34); Monocytes Absolute Auto 800 /uL (0-900); Monocytes Percent Auto 10.9 % (3-14); Neutrophils Absolute Auto 4500 /uL (1500-7000); Neutrophils Percent Auto 62.7 % (50-75); Platelet Count 260 X10^3/uL (150-400); Red Blood Cell Count 4.22 X10^6/uL (4.5-5.9); Red Cell Distribution Width 13.7 % (11.6-14.8); White Blood Cell Count 7.2 X10^3/uL (4.5-11.0)
[2025-01-08 09:17] LABS: HEMOLYSIS < 15 (0-50); Iron 139 ug/dL (49-181)
[2025-01-08 09:23] LABS: Alanine Aminotransferase 22 IU/L (<50); Albumin 4.4 g/dL (3.5-5.0); Alkaline Phosphatase 58 U/L (38-126); Aspartate Aminotransferase 31 IU/L (17-59); BUN Creatinine Ratio 35.2 (6-22); Bilirubin Total 0.5 mg/dL (0.2-1.3); Blood Urea Nitrogen 31 mg/dL (9-20); Calcium 8.5 mg/dL (8.4-10.2); Carbon Dioxide 27 mmol/L (22-32); Chloride 104 mmol/L (98-107); Estimated Glomerular Filt Rate > 60 mL/min (>60); Globulin 2.2 g/dL (1.7-4.1); Glucose 102 mg/dL (80-110); HEMOLYSIS < 15 (0-50); Potassium 4.7 mmol/L (3.4-5.1); Sodium 138 mmol/L (137-145); Total Protein 6.6 g/dL (6.3-8.2)
[2025-01-08 09:32] LABS: Percent Iron Saturation 43 % (20-50); Total Iron Binding Capacity 323 ug/dL (261-462); Transferrin 296 mg/dL (206-381)
[2025-01-08 09:36] LABS: Free T4, Direct Thyroxine 1.46 ng/dL (0.78-2.19)
[2025-01-08 09:49] LABS: Prostate Specific Antigen Scrn 3.51 ng/mL (0.1-4.0)
[2025-01-08 09:50] LABS: Thyroid Stimulating Hormone 1.34 uIU/mL (0.47-4.68)
[2025-01-08 10:09] LABS: Vitamin B12 549 pg/mL (239-931)
== END ==
PROVIDERS: PCP Family Medicine; Referring Provider Family Medicine; Visit Provider Family Medicine
DX: D64.9 Anemia, unspecified (principal); Z12.5 Encounter for screening for malignant neoplasm of prostate; E03.9 Hypothyroidism, unspecified; R97.20 Elevated prostate specific antigen [PSA]
CPT/HCPCS: 36415; 80053; 82607; 83540; 83550; 84439; 84443; 85025; G0103